=== PATIENT | female | born 1985 | race Hispanic/Latino ===

== ENCOUNTER 2017-05-23 17:43 | Emergency (ER) | payer MEDICAID, SELFPAY ==
--- NOTE | 2017-05-23 18:55 | RAD ---
LEFT FOOT THREE VIEWS: History: Foot pain with pain to the great toe region. FINDINGS: There is nail injury to the great toe. I do not see underlying fracture of the distal phalanx. IMPRESSION: Great toe nail injury. POS: MORENA
[2017-05-23] MEDS ORDERED: Ketorolac Tromethamine 30 MG/ML VIAL ONE (19:53)
[2017-05-23] MEDS ORDERED: Lidocaine 1% (PF) 30 ML VIAL ONE (21:10)
== END 2017-05-23 22:37 | disposition home or self-care (01) ==
LOC: ERS 17:43
DX: S91.202A Unspecified open wound of left great toe with damage to nail, initial encounter (principal); W22.8XXA Striking against or struck by other objects, initial encounter
CPT/HCPCS: 11750; 96372; J1885; J2001